=== PATIENT | male | born 1955 | race African-American/Black ===

== ENCOUNTER 2016-12-11 07:45 | Emergency (ER) | payer MEDICAID ==
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
[2016-12-11 08:30] LABS: % IMMATURE GRANULYOCYTES 0.3 % (0.0-1.1); ABSOLUTE IMMATURE GRANULOCYTES 0.02 10^3/uL (0.00-0.10); ADD DIFF? NO; ADD MORPH? NO; ADD SCAN? NO; ATYPICAL LYMPHOCYTE FLAG 0 (0-99); FRAGMENT RBC FLAG 20 (0-99); HEMATOCRIT 42.3 % (40.0-51.0); HEMOGLOBIN 13.6 g/dL (13.7-17.5); LEFT SHIFT FLG 0 (0-99); LIPEMIA HEMOLYSIS FLAG 80 (0-99); MEAN CELL HEMOGLOBIN 25.1 pg (27.9-34.1); MEAN CELL HEMOGLOBIN CONCENTR. 32.2 g/dL (32.4-36.7); MEAN CELL VOLUME 78.2 fL (81.5-99.8); MEAN PLATELET VOLUME 9.4 fL (8.7-11.7); PLATELET CLUMPS FLAG 0 (0-99); PLATELET COUNT 240 10^3/uL (150-400); RED BLOOD CELL COUNT 5.41 10^6/uL (4.40-6.38); RED CELL DISTRIBUTION WIDTH 17.1 % (11.5-15.2)
[2016-12-11 08:49] LABS: ANION GAP 11 mEq/L (8-16); CALCIUM 9.7 mg/dL (8.5-10.4); CARBON DIOXIDE 23 mEq/l (22-31); CHLORIDE 107 mEq/L (97-110); CREATININE 1.5 mg/dL (0.7-1.3); GLOMERULAR FILTRATION RATE 47; GLUCOSE 101 mg/dL (70-100); POTASSIUM 3.9 mEq/L (3.5-5.2); SODIUM 141 mEq/L (134-144)
[2016-12-11 08:58] LABS: TROPONIN I 0.029 ng/mL (0-0.034)
--- NOTE | 2016-12-11 09:20 | CPEKG ---
Heart Rate: 76 RR Interval: 789 P-R Interval: 160 QRSD Interval: 114 QT Interval: 428 QTC Interval: 482 P [place]: 65 QRS [place]: -35 T Wave [place]: 128 EKG Severity - ABNORMAL ECG - EKG Impression: SINUS RHYTHM EKG Impression: LAUREN, CONSIDER BIATRIAL ABNORMALITIES EKG Impression: LVH WITH IVCD AND SECONDARY REPOL ABNRM Electronically Signed By: Riley Warren 11-Dec-2016 09:26:39
[2016-12-11] MEDS ORDERED: NS 1,000 ML IV ONE (09:24)
[2016-12-11 10:50] VITALS: RESP 18
[2016-12-11 11:48] VITALS: BP 211/102; PULSE 78; TEMP 98.2; O2SAT 96
[2016-12-12] MEDS ORDERED: VALSARTAN 160 MG TAB PO ONE (09:17)
== END 2016-12-11 11:43 | disposition home or self-care (01) ==
DX: I10 Essential (primary) hypertension (principal); E11.9 Type 2 diabetes mellitus without complications; F17.200 Nicotine dependence, unspecified, uncomplicated